=== PATIENT | male | born 1995 | race Caucasian/White ===

== ENCOUNTER 2021-03-02 11:57 | Emergency (ER) | payer OTHER ==
[~2021-03-02] VITALS: Ht 180.3 cm; Wt 103.9 kg
[~2021-03-02 11:57] MED LIST: IBUPROFEN600 MG PO; NORCO 5-325 TA1 EACH PO; POLYTRIM EYE DR10 ML OD
--- NOTE | 2021-03-02 17:11 | EKG ---
[facility] [address] [facility] [place], [place] [address] Signed Sinus tachycardia Otherwise normal ECG When compared with ECG of 02-MAR-2021 12:12, (Unconfirmed) No significant change was found Confirmed by ZEE PORTILLO DO ([id number]) on 03/02/2021 5:10:53 PM Electronically Signed By: ZEE PORTILLO DO 03/02/21 1711 PATIENT NAME: GEOFF PARSONS Electrocardiogram DATE OF : [birth year] PHYSICIAN: ZEE PORTILLO DO REPORT #: [id number] REPORT IS CONFIDENTIAL AND NOT TO BE RELEASED WITHOUT AUTHORIZATION
== END 2021-03-02 15:25 | disposition home or self-care (01) ==
LOC: ED 11:57
DX: R07.9 Chest pain, unspecified (principal); F17.200 Nicotine dependence, unspecified, uncomplicated
CPT/HCPCS: 71045; 80053; 84484; 85025; 85379; 99285-25; U0003